=== PATIENT | male | born 1965 | race Caucasian/White ===

== ENCOUNTER 2017-08-08 15:00 | Emergency (ER) | payer MEDICAID ==
[2017-08-08] MEDS ORDERED: ONDANSETRON 4 MG/2 ML VIAL ONE (15:22)
[2017-08-08] MEDS ORDERED: ONDANSETRON 4 MG/2 ML VIAL IVP ONE (15:24)
[2017-08-08] MEDS ORDERED: NS 1,000 ML IV SCH (15:30)
[2017-08-08] MEDS ORDERED: LORazepam 2 MG/ML INJ IVP ONE (15:40)
--- NOTE | 2017-08-08 15:42 | EDPHY ---
H & P Time Seen by Provider: 08/08/17 15:30 HPI/ROS: CHIEF COMPLAINT: Nausea and vomiting HISTORY OF PRESENT ILLNESS: This 51-year-old man with insulin-dependent diabetes presents with nausea vomiting and diarrhea starting today this morning. He has been exposed to norovirus visiting his who is at [facility]. Patient presents with moderate to severe nausea vomiting and diarrhea worse with trying to eat oral fluids or food. He was checking his blood sugar and some when it went down to 100 presented to the ER because he was worried about getting hypoglycemic with no oral intake. Not associated with fever or chills, does have some crampy abdominal discomfort. Increased anxiety and panic. REVIEW OF SYSTEMS: Eye: no change in vision ENT: no sore throat Cardiac: no chest pain or syncope Pulmonary: no cough or SOB Abdomen: HPI Musculoskeletal: no back pain Skin: no rash Neuro: no headache Constitutional: no fever : no urinary symptoms A comprehensive 10 point review of systems is otherwise negative aside from elements mentioned in the history of present illness. PAST MEDICAL HISTORY: Insulin-dependent diabetes and anxiety Social history: , no recent alcohol General Appearance: Alert and conversant, cooperative. Eyes: No scleral icterus. ENT, Mouth: Dry mucous membranes Respiratory: Normal respiratory effort, breath sounds equal, lungs are clear to auscultation. Cardiovascular: Regular rate and rhythm. Gastrointestinal: Abdomen is soft and non tender. No McBurney's point tenderness or distention, bowel sounds present. Neurological: Alert and oriented x3. Normally conversant. Face symmetric, normal movement and sensation in all extremities. Skin: Warm and dry, no rashes. Musculoskeletal: No peripheral edema and no joint swelling. Psychiatric: Mildly anxious. Emergency Department course/MDM: Zofran 4 mg IV, normal saline 2 L IV, chemistry panel, Ativan 1 mg IV. Patient agrees not to drive. 1640: Feels better, plan for 2nd L IV normal saline 1816: Abdomen soft and nontender, plan for trial of oral intake. Discussed inpatient versus outpatient treatment, patient would like to try and go home if his symptoms are improving. The patient presents with likely gastroenteritis, I think that acute surgical abdominal process unlikely. No evidence of ketoacidosis on electrolytes. At this time the patient wants to go home and try outpatient management which I think is reasonable. Smoking Status: Never smoked Constitutional: Initial Vital Signs Temperature (C) 36.4 C 08/08/17 15:05 Heart Rate 85 08/08/17 15:05 Respiratory Rate 20 08/08/17 15:05 Blood Pressure 124/81 H 08/08/17 15:05 O2 Sat (%) 99 08/08/17 15:05 O2 Delivery Mode Room Air Allergies/Adverse Reactions: No Known Allergies Allergy (Verified 07/18/14 16:48) Home Medications: Medication Instructions Recorded Insulin Aspart [novoLOG] 4 units SC AC PRN 07/18/14 Insulin Detemir [Levemir] 9 unit SQ DAILY@19 02/05/16 Insulin Detemir [Levemir] 10 unit SQ DAILY 02/05/16 LORazepam [Ativan] 1 mg PO TID PRN #30 tablet 02/07/16 Medical Decision Making Differential Diagnosis: Differential diagnosis considered for nausea and vomiting including but not limited to DKA, other metabolic abnormality, gastroenteritis, gastritis, appendicitis, and medication side effect. - Data Points Laboratory Results: Laboratory Results 08/08/17 15:20 08/08/17 15:20 Sodium 143 mEq/L mEq/L (134-144) Potassium 4.2 mEq/L mEq/L (3.5-5.2) Chloride 106 mEq/L mEq/L (97-110) Carbon Dioxide 22 mEq/l mEq/l (22-31) Anion Gap 15 mEq/L mEq/L (8-16) BUN 28 mg/dL H mg/dL (7-23) Creatinine 0.8 mg/dL mg/dL (0.7-1.3) Estimated GFR > 60 Glucose 107 mg/dL H mg/dL (70-100) Calcium 9.3 mg/dL mg/dL (8.5-10.4) Medications Given: Discontinued Medications Sodium Chloride (Ns) 1,000 mls @ 0 mls/hr IV CONT TOLU PRN Reason: TKO Stop: 02/04/18 15:29 Last Admin: 08/08/17 15:26 Dose: 1,000 mls Sodium Chloride (Ns) 1,000 mls @ 0 mls/hr IV EDNOW ONE; Wide Open PRN Reason: Protocol Stop: 08/08/17 16:42 Last Admin: 08/08/17 16:56 Dose: 1,000 mls Lorazepam (Ativan Injection) 1 mg IVP EDNOW ONE Stop: 08/08/17 15:41 Last Admin: 08/08/17 15:49 Dose: 1 mg Ondansetron HCl (Zofran) 4 mg IVP EDNOW ONE Stop: 08/08/17 15:25 Last Admin: 08/08/17 15:27 Dose: 4 mg Departure - Departure Disposition: Home, Routine, Self-Care Clinical Impression: Nausea and vomiting Qualifiers: Vomiting type: unspecified Vomiting Intractability: non-intractable Qualified Code(s): R11.2 - Nausea with vomiting, unspecified Condition: Good Instructions: Acute Nausea and Vomiting (ED) Referrals: Reid Benson MD [Primary Care Provider] - As per Instructions
[2017-08-08 15:46] LABS: ANION GAP 15 mEq/L (8-16); CALCIUM 9.3 mg/dL (8.5-10.4); CARBON DIOXIDE 22 mEq/l (22-31); CHLORIDE 106 mEq/L (97-110); CREATININE 0.8 mg/dL (0.7-1.3); GLOMERULAR FILTRATION RATE > 60; GLUCOSE 107 mg/dL (70-100); POTASSIUM 4.2 mEq/L (3.5-5.2); SODIUM 143 mEq/L (134-144)
[2017-08-08 16:24] VITALS: RESP 18
[2017-08-08] MEDS ORDERED: NS 1,000 ML IV ONE (16:41)
[2017-08-08 19:28] VITALS: BP 125/83; PULSE 89; TEMP 99.3; O2SAT 94
== END 2017-08-08 19:27 | disposition home or self-care (01) ==
DX: R11.2 Nausea with vomiting, unspecified (principal); E11.9 Type 2 diabetes mellitus without complications; E86.9 Volume depletion, unspecified; Z79.4 Long term (current) use of insulin
CPT/HCPCS: 96374; J2060; J2405

== ENCOUNTER 2017-10-01 21:16 | Observation (INO) | payer MEDICAID ==
[2017-10-01] MEDS ORDERED: IBUPROFEN 600 MG TAB PO ONE ×2 (22:06→22:10)
[2017-10-01] MEDS ORDERED: NS 1,000 ML IV ONE ×2 (22:10→22:14)
[2017-10-01] MEDS ORDERED: ONDANSETRON 4 MG/2 ML VIAL IVP ONE (22:10)
--- NOTE | 2017-10-01 22:10 | EDPHY ---
H & P Stated Complaint: c/o fatigue/chills/body aches x 3 days, n/v startting tonight HPI/ROS: HPI CHIEF COMPLAINT: Flu-like illness x4 days HISTORY OF PRESENT ILLNESS: This patient is a 51-year-old male, presents emergency room for generalized weakness, fatigue, flu-like illness x4 days. He states over the past 2 days he has had worsening chills. Additionally vomited 1 time today. He denies any chest pain or chest pressure. He states globally feels weak. Lightheaded when he stands up. He states he has been in bed for the past 48 hr with chills. He thinks he may have the flu. He does admit to flu -like illness with muscle aches joint pain. Past Medical History: Type 1 diabetes Past Surgical History: No significant surgical history Social History: Lives locally, denies drugs alcohol tobacco. Dr. Benson is his primary care doctor Family History: Noncontributory ROS REVIEW OF SYSTEMS: A comprehensive 10 point review of systems is otherwise negative aside from elements mentioned in the history of present illness. Exam Constitutional appears well nontoxic no acute distress, triage nursing summary reviewed, vital signs reviewed, awake/alert. Eyes normal conjunctivae and sclera, EOMI, PERRLA. HENT normal inspection, atraumatic, moist mucus membranes, no epistaxis, neck supple/ no meningismus, no raccoon eyes. Respiratory clear to auscultation bilaterally, normal breath sounds, no respiratory distress, no wheezing. Cardiovascular rate normal, regular rhythm, no murmur, no edema, distal pulses normal. Gastrointestinal soft, non-tender, no rebound, no guarding, normal bowel sounds, no distension, no pulsatile mass. Genitourinary no CVA tenderness. Musculoskeletal no midline vertebral tenderness, full range of motion, no calf swelling, no tenderness of extremities, no meningismus, good pulses, neurovascularly intact. Skin pink, warm, & dry, no rash, skin atraumatic. Neurologic awake, alert and oriented x 3, AAOx3, moves all 4 extremities equally, motor intact, sensory intact, CN II-XII intact, normal cerebellar, normal vision, normal speech. Psychiatric normal mood/affect. Heme/Lymph/Immune no lymphadenopathy. Differential Diagnosis: Includes but is not limited to in a particular order acute dehydration, flu-like illness, viral syndrome, pneumonia, bacteremia, UTI, , DKA Medical Decision Making: Plan for this patient IV establishment IV fluid bolus , IV Zofran nausea, check basic blood work, and re-evaluate. Check influenza. EKG. Chest x-ray. Re-evaluation: EKG interpretation by me on record in [employer] system. Impression time of EKG 2217, this is sinus rhythm rate of 70, left anterior fascicular block present. This is very similar to the previous EKG dated 02/05/2016. 1202AM: Patient is influenza B positive. Patient states he does not feel well. He does appear globally weak. Vital signs are stable. Blood work has been reviewed. He has received 2 L of fluid here. Plan will be for admission the hospital for influenza B, generalized weakness, type 1 diabetic. Chest x-ray one view I do not appreciate a focal pneumonia. Will contact his primary care doctor Dr. Rios. Source: Patient - Personal History Tetanus Vaccine Date: 1998 - Medical/Surgical History Hx Asthma: No Hx Chronic Respiratory Disease: No Hx Diabetes: Yes Hx Cardiac Disease: No Hx Renal Disease: No Hx Cirrhosis: No Hx Alcoholism: No Hx HIV/AIDS: No Hx Splenectomy or Spleen Trauma: No Other PMH: diabetic, anxiety, bilat cataract surg - Social History Smoking Status: Never smoked Constitutional: Initial Vital Signs Temperature (C) 37.5 C 10/01/17 21:26 Heart Rate 87 10/01/17 21:26 Respiratory Rate 18 10/01/17 21:26 Blood Pressure 124/81 H 10/01/17 21:26 O2 Sat (%) 97 10/01/17 21:26 O2 Delivery Mode Room Air Allergies/Adverse Reactions: No Known Allergies Allergy (Verified 10/01/17 21:30) Home Medications: Medication Instructions Recorded Insulin Aspart [novoLOG] 0 units SC TIDMEAL 07/18/14 Insulin Detemir [Levemir] 6 unit SQ HS 02/05/16 Insulin Detemir [Levemir] 10 unit SQ DAILY 02/05/16 Medical Decision Making - Data Points Laboratory Results: Laboratory Results 10/01/17 22:20 10/01/17 22:20 10/01/17 22:20 Hemoglobin A1c 10.9 % H D % (4.0-6.0) Estim Average Glucose 266 mg/dL H mg/dL (68-126) Medications Given: Famotidine (Pepcid) 20 mg PO BID [facility] Stop: 03/31/18 20:59 Last Admin: 10/02/17 20:51 Dose: 20 mg Dextrose/Sodium Chloride (D5w Ns) 1,000 mls @ 125 mls/hr IV CONT TOLU Stop: 03/31/18 00:59 Last Admin: 10/02/17 19:14 Dose: 1,000 mls Insulin Human Lispro (Humalog Lispro) 0 unit SC TIDMEAL TOLU PRN Reason: Protocol Stop: 03/31/18 07:59 Last Admin: 10/02/17 19:38 Dose: 3 units Ondansetron HCl (Zofran) 4 mg IVP Q4HRS PRN PRN Reason: Nausea/Vomiting, Can't Take PO Stop: 03/31/18 00:48 Last Admin: 10/02/17 10:17 Dose: 4 mg Oseltamivir Phosphate (Tamiflu) 75 mg PO BIDMEAL [facility] Stop: 10/06/17 18:01 Last Admin: 10/02/17 20:51 Dose: 75 mg Promethazine HCl (Phenergan) 12.5 mg IVP Q6H PRN PRN Reason: Nausea/Vomiting, Can't Take PO Stop: 03/31/18 15:13 Last Admin: 10/02/17 16:37 Dose: 12.5 mg Discontinued Medications Sodium Chloride (Ns) 1,000 mls @ 0 mls/hr IV EDNOW ONE; Wide Open PRN Reason: Protocol Stop: 10/01/17 22:11 Last Admin: 10/01/17 22:19 Dose: 1,000 mls Sodium Chloride (Ns) 1,000 mls @ 0 mls/hr IV ONCE ONE PRN Reason: Wide Open Stop: 10/01/17 22:15 Last Admin: 10/01/17 22:20 Dose: 1,000 mls Ibuprofen (Motrin) 600 mg PO EDNOW ONE Stop: 10/01/17 22:11 Last Admin: 10/01/17 22:11 Dose: 600 mg Lorazepam (Ativan Injection) 0.5 mg IVP ONCE ONE Stop: 10/02/17 20:01 Last Admin: 10/02/17 20:50 Dose: 0.5 mg Ondansetron HCl (Zofran) 4 mg IVP EDNOW ONE Stop: 10/01/17 22:11 Last Admin: 10/01/17 22:20 Dose: 4 mg Oseltamivir Phosphate (Tamiflu) 75 mg PO EDNOW ONE Stop: 10/02/17 00:09 Last Admin: 10/02/17 00:38 Dose: 75 mg Departure - Departure Disposition: [facility] Acute Clinical Impression: Generalized weakness, Influenza B Condition: Fair
[2017-10-01 22:36] LABS: PLATELET COUNT 159 10^3/uL (150-400)
[2017-10-02] MEDS ORDERED: OSELTAMIVIR PHOSPHATE 75 MG CAP PO ONE (00:08)
[2017-10-02] MEDS ORDERED: D50W 25 GM/50 ML SYR IVP PRN (00:49)
--- NOTE | 2017-10-02 01:16 | GHP ---
[f rep st] HISTORY AND PHYSICAL DATE OF ADMISSION: 10/02/2017 REASON FOR ADMISSION: Type B influenza and insulin-dependent diabetes. HISTORY: The patient is a 51-year-old male who has been sick for the last 4 days, had severe chills, has not been able to get warm. He presents to the emergency room with fatigue, feeling like he is g oing to be dying. He has not been able to eat or drink much, although his blood sugars have been und er reasonable control. He is not taking a particularly high dose of insulin at this time. He is on no other medications. PAST MEDICAL HISTORY: Significant for type 1 diabetes, which he has had for about a decade. SOCIAL HISTORY: He is . His has had a stroke and [facility]. REVIEW OF SYSTEMS: He has no other complaints other than relating to his current influenza. He does have muscle aches, headache, cough, and a sense of shortness of breath. PHYSICAL EXAM: VITAL SIGNS: Temp 99.5, oxygen saturation 97% on room air, blood pressure 124/81, he art rate 87 and regular, respirations 18. EYES: Pupils equal and reactive. LUNGS: Completely dariel r to auscultation. HEART: Regular rate and rhythm without murmur. ABDOMEN: Nontender. EXTREMITIE S: He has no peripheral edema. GENERAL: He appears to be somewhat dry. He has received 2 L of saline in the ICU but has not been able to make urine yet. Blood work shows a normal white count with no eosinophils and low basophil count. BUN 28, creatinine 1.1, sodium 133, CO2 22, liver function tests normal, calcium 14 is normal. Lipase was normal. Troponins were negati ve. IMPRESSION: Influenza B in a patient with type 1 diabetes and decompensation. PLAN: Will admit to observation. Will hydrate tonight. Will place on sliding scale insulin. Evalu ate potential for discharge later in the morning. /[id number]/MODL
[2017-10-02] MEDS: D5W NS 1,000 ML IV SCH ×3 (01:17→19:14)
[2017-10-02] MEDS: OSELTAMIVIR PHOSPHATE 75 MG CAP PO SCH ×2 (08:17→20:51)
--- NOTE | 2017-10-02 08:59 | SOAPPROG ---
SOAP Progress Note Assessment/Plan: Assessment: Plan: 10/02/17 08:58 DM1--stable. If able to take po will stop IVF's. Morning long acting was 10 units, 6 units hs. 2 units fast acting prn per patient Flu B +--on tamiflu. Will see how he does with eating and drinking Subjective: The patient feels better this am. Food is ordered. He is making urine. Profound chills have abated. Zofran has not historically helped. Phenergan makes him tired. Objective: Vital Signs Temp Pulse Resp BP Pulse Ox 36.8 C 69 16 115/74 96 10/02/17 08:00 10/02/17 08:00 10/02/17 08:00 10/02/17 08:00 10/02/17 08:00 10/01/17 10/02/17 10/03/17 05:59 05:59 05:59 Intake Total 2000 Output Total 300 850 Balance 1700 -850 Gen: NAD Lungs: CTAB Heart: RRR no tachy Abd + bs soft NT Flu B ++ ICD10 Worksheet Patient Problems: Problems Problem Status Onset Generalized weakness Acute Influenza B Acute Abdominal pain Acute Acute renal failure (ARF) Acute Back muscle spasm Acute Diabetes type 1, controlled Acute
[2017-10-02] MEDS: INSULIN LISPRO 100 UNIT/ML SC SCH ×3 (10:09→19:38)
[2017-10-02] MEDS: ONDANSETRON 4 MG/2 ML VIAL IVP PRN (10:17)
--- NOTE | 2017-10-02 11:16 | ASMTCASEMG ---
Living Arrangements What is your living Answers: Alone arrangement? Who do you live with? Type Of Residence What kind of residence do Answers: Apartment you live in? Discharge Plan Comments Coordination Status Comments Notes: Patient is a 51yo male who was admitted for Type B influenza and insulin dependent diabetes. No therapies have been ordered. Patient most likely will d/c independent. CM will follow. Date Signed: 10/02/2017 11:15 AM Electronically Signed By:Marcela Emmanuel LCSW
[2017-10-02] MEDS ORDERED: PROMETHAZINE HCL 25 MG/ML INJ IVP PRN (15:14)
[2017-10-02] MEDS ORDERED: LORazepam 2 MG/ML INJ IVP ONE (20:00)
[2017-10-02] MEDS: FAMOTIDINE 20 MG TAB PO SCH (20:51)
[2017-10-02] MEDS: INSULIN GLARGINE 100 UNITS/ML UNIT SC SCH (22:52)
[2017-10-03] MEDS: LORazepam 2 MG/ML INJ IVP PRN ×4 (03:09→21:42)
--- NOTE | 2017-10-03 08:26 | CPEKG ---
Heart Rate: 70 RR Interval: 857 P-R Interval: 148 QRSD Interval: 94 QT Interval: 396 QTC Interval: 428 P [place]: 77 QRS [place]: -71 T Wave [place]: 46 EKG Severity - ABNORMAL ECG - EKG Impression: SINUS RHYTHM EKG Impression: LEFT ANTERIOR FASCICULAR BLOCK EKG Impression: CONSIDER ANTEROSEPTAL INFARCT Electronically Signed By: Jordy Hodge 03-Oct-2017 15:49:39
--- NOTE | 2017-10-03 09:35 | SOAPPROG ---
SOAP Progress Note Assessment/Plan: Assessment: 51 yo male w/ influneza B and IDDM - -Influneza B - still w/ vomiting yesterday after eating, dry heaving - dyspepsia. Feels better w/ ativan and pepcid - zofran and phenergan not really helping. Did get good sleep last night and feels like maybe he has turned the corner. Will see if he can keep in breakfast and lunch today, if able to take po 's and doing better will d/c home later today. Cont on tamiflu. If still w/ n/v will need to stay until he can take po's tony w/ his IDDM. -IDDM - fsbs 170 this am, on IVF w/ d5 currently - will dc/ if able to keep in po's this am. Cont w/ insulin per orders and he has additional prn orders. -dispo - d/c either later today if able to keep in po 's or likely tomorrow if not able to later today. Plan: 10/03/17 09:31 Subjective: Slept so much better last night, feels like he is turning the corner except for continued GI upset. Objective: Vital Signs Temp Pulse Resp BP Pulse Ox 36.9 C 67 16 135/89 H 92 10/03/17 08:00 10/03/17 08:00 10/03/17 08:00 10/03/17 08:00 10/03/17 08:00 10/02/17 10/03/17 10/04/17 05:59 05:59 05:59 Intake Total 1999 2824 Output Total 300 1875 Balance 1700 949 Gen: thin, alert, oriented Heent: perr Chest: cta b CV: rrr Ext: no edema Psych: good affect, feeling brighter today - Pending Discharge Pending Discharge Within 24 Hours: Yes Pending Discharge Date: 10/04/17 Pending Discharge Time: 11:00 ICD10 Worksheet Patient Problems: Problems Problem Status Onset Diabetes type 1, controlled Acute Acute renal failure (ARF) Acute Back muscle spasm Acute Abdominal pain Acute Generalized weakness Acute Influenza B Acute
[2017-10-03] MEDS: OSELTAMIVIR PHOSPHATE 75 MG CAP PO SCH ×2 (09:44→18:27)
[2017-10-03] MEDS: INSULIN GLARGINE 100 UNITS/ML SYRINGE SC SCH (09:45)
[2017-10-03] MEDS: FAMOTIDINE 20 MG TAB PO SCH ×2 (09:50→21:34)
[2017-10-03] MEDS: INSULIN LISPRO 100 UNIT/ML SC SCH ×3 (09:50→18:28)
[2017-10-03] MEDS: INSULIN GLARGINE 100 UNITS/ML UNIT SC SCH (21:35)
[2017-10-04 05:08] VITALS: TEMP 98.4; O2SAT 97
[2017-10-04] MEDS: ONDANSETRON 4 MG/2 ML VIAL IVP PRN (05:25)
[2017-10-04 07:29] VITALS: BP 105/81; PULSE 67; RESP 14
[2017-10-04] MEDS: INSULIN LISPRO 100 UNIT/ML SC SCH (08:49)
[2017-10-04] MEDS: OSELTAMIVIR PHOSPHATE 75 MG CAP PO SCH (08:49)
[2017-10-04] MEDS: FAMOTIDINE 20 MG TAB PO SCH (08:50)
[2017-10-04] MEDS: INSULIN GLARGINE 100 UNITS/ML SYRINGE SC SCH (08:50)
--- NOTE | 2017-10-04 08:52 | SOAPPROG ---
SOAP Progress Note Assessment/Plan: Assessment: Plan: 10/02/17 08:58 DM1--stable. If able to take po will stop IVF's. Morning long acting was 10 units, 6 units hs. 2 units fast acting prn per patient Flu B +--on tamiflu. Will see how he does with eating and drinking 10/04/17 08:51 Flu B+ symptomatically improved. Anticipate d/c home today. Subjective: Feeling better. Appetite improved. Ativan and pepcid seem to have settled stomach more effectively. Has ativan at home. Objective: Vital Signs Temp Pulse Resp BP Pulse Ox 36.9 C 67 14 105/81 H 97 10/04/17 07:20 10/04/17 07:20 10/04/17 07:20 10/04/17 07:20 10/04/17 07:20 10/03/17 10/04/17 10/05/17 05:59 05:59 05:59 Intake Total 2824 900 Output Total 1875 Balance 949 900 Gen: improved energy Lungs: dry cough Heart: RRR Abd + bs soft LE: no edema ICD10 Worksheet Patient Problems: Problems Problem Status Onset Generalized weakness Acute Influenza B Acute Abdominal pain Acute Acute renal failure (ARF) Acute Back muscle spasm Acute Diabetes type 1, controlled Acute
--- NOTE | 2017-10-04 09:07 | GDS ---
[f rep st] DISCHARGE SUMMARY REASON FOR ADMISSION: Positive influenza B with symptoms, secondary type 1 diabetes. HOSPITAL COURSE: Patient was admitted due to extreme dehydration due to flu B with mostly GI symptom s. He was given IV fluid replacement in the ER with prompt improvement in dehydrated status. He was given some D5 normal saline to support his sugars. Sugars were predominantly in the lower 200s and mid 100s through the course of his stay. He has had some challenges with tolerating p.o. without rex sea or vomiting. This has improved as of today. He will have breakfast and transition to p.o. fluid s. If that goes well, anticipate discharge home this morning. He will complete his course of Tamifl u 75 mg twice daily with 5 more capsules, which has been printed. He will resume his home insulin. He finds some comfort from lorazepam for nausea. This will be continued at home. He has this medica tion at home. He will have outpatient followup as needed. /[id number]/MODL
== END 2017-10-04 11:18 | disposition home or self-care (01) ==
LOC: F3E 10-02 00:55
PROVIDERS: ADMIT Internal Medicine; ATTEND Internal Medicine
DX: J10.2 Influenza due to other identified influenza virus with gastrointestinal manifestations (principal); E10.9 Type 1 diabetes mellitus without complications; E86.0 Dehydration; F41.9 Anxiety disorder, unspecified; Z96.1 Presence of intraocular lens
CPT/HCPCS: 96374; J1815; J2060; J2405; J2550